=== PATIENT | female | born 1990 | race African-American/Black ===

== ENCOUNTER 2017-10-03 14:28 | Emergency (ER) | payer SELFPAY ==
[~2017-10-03] VITALS: Ht 170.2 cm; Wt 79.0 kg
[~2017-10-03 14:28] MED LIST: OXYC-360 PO; Z.0.NO CURRENT MEDS
[2017-10-03 14:51] VITALS: BP 132/84; PULSE 86; RESP 17; TEMP 98.4; O2SAT 99
[2017-10-03 15:42] LABS: BACTERIA, URINE RARE /hpf; BILIRUBIN, URINE NEG (NEG); BLOOD, URINE LARGE (NEG); GLUCOSE,URINE NEG (NEG); KETONE, URINE TRACE mg/dL (NEG); MUCUS URINE FEW /lpf (OCC); NITRITE,URINE NEG (NEG); SQUAMOUS EPITHELIAL CELL URINE 5 /hpf (0-5); URINE COLOR YELLOW (YELLW/STRAW); URINE LEUKOCYTE ESTERASE MOD (NEG)
--- NOTE | 2017-10-03 18:09 | PD ---
HPI Chief Complaint: Complaint Time Seen by Provider: 18:07 Travel History International Travel<30 days: No Contact w/Intl Traveler<30days: No Traveled to known affect area: No History of Present Illness HPI 27-year-old female presents emergency department with dysuria, and vaginal discharge. Patient states her significant other was seen 2 days ago and treated for gonorrhea, trichomonas, and chlamydia. Patient denies significant fever, chills, abdominal pain, or flank pain. Urinalysis in triage is positive for probable urinary tract infection and culture is pending. Patient is currently on her menstruation cycle starting today. She denies any other acute medical issues. She has no known drug allergies. PFSH Past Medical History Asthma: Yes Diminished Hearing: No Reproductive: Yes (PID) ?: Not : 2 Para: 0 Miscarriage: 2 Past Surgical History Other Surgery: Yes (LT HAND) Social History Alcohol Use: Yes (FEW DRINKS A DAY) Tobacco Use: Yes (1/2 PPK DAY) Substance Use: Yes (MARIJUANA EVERYDAY) Allergies-Medications (Allergen,Severity, Reaction): Coded Allergies: No Known Allergies (Verified , 03/03/13) Reported Meds & Prescriptions Reported Meds & Active Scripts Active Percocet (Oxycodone/Acetaminophen) 5 Mg/325 Mg Tab 1 Tab PO Q4H PRN FOR PAIN Reported No Current Meds (Miscellaneous Medication) Misc Review of Systems Except as stated in HPI: all other systems reviewed are Neg General / Constitutional: No: Fever, Chills Eyes: No: Visual changes HENT: No: Headaches Cardiovascular: No: Chest Pain or Discomfort Respiratory: No: Shortness of Breath Gastrointestinal: No: Abdominal Pain Genitourinary: Positive: Urgency, Frequency, Dysuria, Discharge, Vaginal Bleeding Musculoskeletal: No: Pain Skin: No Rash Neurologic: No: Weakness Psychiatric: No: Depression Endocrine: No: Polydipsia Hematologic/Lymphatic: No: Easy Bruising Physical Exam Narrative GENERAL: Patient appears in no acute distress. SKIN: Warm and dry. Normal color. Normal turgor. HEAD: Atraumatic. Normocephalic. EYES: Pupils equal and round. No scleral icterus. No injection or drainage. ENT: No nasal bleeding or discharge. Mucous membranes pink and moist. NECK: Trachea midline. No JVD. CARDIOVASCULAR: Regular rate and rhythm. RESPIRATORY: No accessory muscle use. Clear to auscultation. Breath sounds equal bilaterally. GASTROINTESTINAL: Abdomen soft, non-tender, nondistended. Hepatic and splenic margins not palpable. No CVA tenderness per MUSCULOSKELETAL: Extremities without clubbing, cyanosis, or edema. No obvious deformities. NEUROLOGICAL: Awake and alert. No obvious cranial nerve deficits. Motor grossly within normal limits. Five out of 5 muscle strength in the arms and legs. Normal speech. PSYCHIATRIC: Appropriate mood and affect; insight and judgment normal. Data Data Last Documented VS Vital Signs Date Time Temp Pulse Resp B/P (MAP) Pulse Ox O2 Delivery O2 Flow Rate FiO2 10/03/17 14:51 98.4 86 17 132/84 (100) 99 Orders Orders Urinalysis - C+S If Indicated (10/03/17 14:53) Ed Urine Pregnancytest Poc (10/03/17 14:53) Iv Access Insert/Monitor (10/03/17 14:53) Oxygen Administration (10/03/17 14:53) Oximetry (10/03/17 14:53) Urine Culture (10/03/17 15:00) Gc And Chlamydia Pcr (10/03/17 18:08) Azithromycin Powd Pack (Zithromax Powd P (10/03/17 18:15) Lidocaine 1% Inj (50 Ml) (Xylocaine 1% I (10/03/17 18:15) Metronidazole (Flagyl) (10/03/17 18:15) Ceftriaxone Inj (Rocephin Inj) (10/03/17 18:15) Labs Laboratory Tests Test 10/03/17 15:00 Urine Color YELLOW Urine Turbidity HAZY Urine pH 5.0 Urine Specific [place] 1.014 Urine Protein NEG mg/dL Urine Glucose (UA) NEG mg/dL Urine Ketones TRACE mg/dL Urine Occult Blood LARGE Urine Nitrite NEG Urine Bilirubin NEG Urine Urobilinogen LESS THAN 2.0 MG/DL Urine Leukocyte Esterase MOD Urine RBC 2 /hpf Urine WBC 3 /hpf Urine Squamous Epithelial Cells 5 /hpf Urine Bacteria RARE /hpf Urine Mucus FEW /lpf Microscopic Urinalysis Comment CATH-CULTURE IND MDM Medical Decision Making Medical Screen Exam Complete: Yes Emergency Medical Condition: Yes Differential Diagnosis Exposure to STD. Urinary tract infection. Need for antibiotic. Narrative Course Patient and the patient's history and physical she will be covered with Rocephin 1000 mg IM, azithromycin 2000 mg p.o., and metronidazole 2000 mg p.o. now. Urinalysis culture is pending. Urine GC chlamydia is pending as well. Patient also given Macrodantin 100 mg twice daily for 7 days for presumed UTI. Recommend no sexual contact for the next 7 days. Patient should follow-up with her primary care physician or the health department to ensure clearance. Patient can return with worsening symptoms as needed. Diagnosis Primary Impression: Exposure to sexually transmitted disease (STD) Additional Impression: Urinary tract infection Qualified Codes: N30.00 - Acute cystitis without hematuria Patient Instructions: Chlamydia (ED), Dysuria (ED), General Instructions, Gonorrhea (ED), Trichomoniasis (ED) Additional Instructions: Patient and the patient's history and physical she will be covered with Rocephin 1000 mg IM, azithromycin 2000 mg p.o., and metronidazole 2000 mg p.o. now. Urinalysis culture is pending. Urine GC chlamydia is pending as well. Patient also given Macrodantin 100 mg twice daily for 7 days for presumed UTI. Recommend no sexual contact for the next 7 days. Patient should follow-up with her primary care physician or the health department to ensure clearance. Patient can return with worsening symptoms as needed. Med/Other Pt SpecificInfo: Prescription(s) given Disposition: 01 DISCHARGE HOME Condition: Stable Harlan Cohen Oct 03, 2017 18:09
[2017-10-03] MEDS ORDERED: AZITHROMYCIN PWD FOR SUSP 1 GM PACKET PO ONE (18:15)
[2017-10-03] MEDS ORDERED: LIDOCAINE HCL 1% 50 ML VIAL IM ONE (18:15)
[2017-10-03] MEDS ORDERED: metroNIDAZOLE 500 MG TAB PO ONE (18:15)
[2017-10-03] MEDS ORDERED: MACR100C2 PO (18:22)
== END 2017-10-03 19:16 | disposition home or self-care (01) ==
LOC: NEPD 14:28
DX: N39.0 Urinary tract infection, site not specified (principal); Z20.2 Contact with and (suspected) exposure to infections with a predominantly sexual mode of transmission; F12.90 Cannabis use, unspecified, uncomplicated; J45.909 Unspecified asthma, uncomplicated; F17.200 Nicotine dependence, unspecified, uncomplicated
CPT/HCPCS: 81001; 87086; 87491; 87591; 96372; 99283; J0696